=== PATIENT | female | born 1970 | race Hispanic/Latino ===

== ENCOUNTER 2024-04-26 20:08 | Emergency (ER) | payer OTHER ==
[~2024-04-26] VITALS: Ht 152.4 cm; Wt 97.5 kg
[2024-04-26] MEDS: HYDROCODONE/APAP 5MG-325MG TAB PO ONE (21:40)
[2024-04-26 21:48] VITALS: PULSE 81; RESP 16; TEMP 97.6; O2SAT 98
[2024-04-26] MEDS ORDERED: ULTRAM 50MG50 MG PO (21:48)
[2024-04-26] MEDS ORDERED: NAPROXEN250 MG PO (21:48)
== END 2024-04-26 21:53 | disposition home or self-care (01) ==
LOC: ER 21:40
DX: S83.8X2A Sprain of other specified parts of left knee, initial encounter (principal); M25.521 Pain in right elbow; W01.0XXA Fall on same level from slipping, tripping and stumbling without subsequent striking against object, initial encounter; Y93.01 Activity, walking, marching and hiking; Y92.512 Supermarket, store or market as the place of occurrence of the external cause; M19.09 Primary osteoarthritis, other specified site
CPT/HCPCS: 99283